=== PATIENT | female | born 1960 | race Caucasian/White ===

== ENCOUNTER 2024-04-04 07:56 | Outpatient (REF) | payer OTHER, SELFPAY ==
[2024-04-04 11:21] LABS: MANUAL DIFF FLAG NO
[2024-04-04 11:26] LABS: Basophils Absolute Auto 0.1 X10*3/uL (0.0-0.2); Basophils Percent Auto 0.5 % (0-2); Eosinophils Absolute Auto 0.1 X10*3/uL (0.0-0.4); Eosinophils Percent Auto 0.6 % (0-4); Hematocrit 43.6 % (37.0-47.0); Hemoglobin 14.3 g/dl (12.0-16.0); Imm Gran Abs Auto 0.05 X10*3/uL (0.00-0.03); Imm Gran Pct Auto 0.4 % (0.0-0.4); Lymphocytes Absolute Auto 2.2 X10*3/uL (1.2-4.9); Mean Corpuscular HGB Conc 32.8 g/dl (31.0-35.0); Mean Corpuscular Hemoglobin 27.2 pg (27.0-33.0); Mean Corpuscular Volume 82.9 fL (80.0-98.0); Monocytes Absolute Auto 0.7 X10*3/uL (0.1-1.2); Monocytes Percent Auto 5.4 % (2-11); Neutrophils Absolute Auto 9.2 x10*3/uL (2.0-8.3); Neutrophils Percent Auto 75.1 % (45-73); Platelet Count 394 X10*3/uL (160-400); Red Blood Count 5.26 X10*6/uL (4.20-5.50); Red Cell Distribution Width 15.1 % (11.0-16.0); White Blood Count 12.3 X10*3/uL (4.8-10.8)
[2024-04-04 11:35] LABS: Estimated Average Glucose 123 mg/dL; Hemoglobin A1C 151.7844 umol/L; Hemoglobin A1c % 5.9 % (<6.0)
[2024-04-04 12:14] LABS: Alanine Aminotransferase 32 U/L (0-31); Albumin Level 4.1 g/dL (3.5-5.0); Alkaline Phosphatase 113 U/L (39-117); Anion Gap 13 (12-20); Aspartate Amino Transferase 22 U/L (5-31); Bilirubin Total 0.6 mg/dL (0.0-1.0); Blood Urea Nitrogen 7 mg/dL (9-16); Calcium 9.3 mg/dL (8.4-10.2); Carbon Dioxide 27 mmol/L (22-29); Chloride 107 mmol/L (96-108); Cholesterol 189 mg/dL (<200); Estimated Glomerular Filt Rate > 60; Glucose Random 112 mg/dL (60-115); HDL Cholesterol 66 mg/dL (>40); LDL Cholesterol Calculated 106 mg/dL (<100); Potassium 3.5 mmol/L (3.3-5.1); Sodium 143 mmol/L (135-145); Total Protein 7.1 g/dL (6.5-8.0); Triglycerides 87 mg/dL (<150)
[2024-04-04 12:33] LABS: TSH reflex Free T4 2.41 uIU/mL (0.32-4.0)
== END 2024-04-04 07:57 | disposition home or self-care (01) ==
LOC: HO.WFDLDS 07:56
PROVIDERS: Visit Provider Internal Medicine
DX: E03.9 Hypothyroidism, unspecified (principal); R73.09 Other abnormal glucose; Z13.228 Encounter for screening for other metabolic disorders; Z13.0 Encounter for screening for diseases of the blood and blood-forming organs and certain disorders involving the immune mechanism
CPT/HCPCS: 36415; 80053; 80061; 83036; 84443; 85025

== ENCOUNTER 2024-05-20 11:01 | Outpatient (AMB) | payer OTHER, SELFPAY ==
--- NOTE | 2024-05-20 11:04 | MHC.PC.OV ---
Vital Signs 05/20/24 11:24 Height 5 ft 4.75 in Weight 187 lb BMI 31.4 BP 144/87 H Blood Pressure Location Lt brachial Position Sitting Respiration 13 Pulse 84 Pulse Source Pulse Oximeter Pulse Oximetry (%) 98 Oxygen Delivery Method Room Air Intake Visit Reasons: Reestablish from [facility] needs sooner appt Intake Note: Patient is here to establish care with [facility] and would like to discuss gastrointestinal concerns she has. Patient reports she can feel her SVT onset and knows how to help the heart slow down. Network Designer Required: No Accompanied by: Self / Same As Patient Allergies bacitracin [From Polysporin(bacitracin base)] Allergy (Severe, Verified 05/20/24 11:13) Rash Penicillins Allergy (Severe, Verified 05/20/24 11:13) Rash polymyxin B [From Polysporin(bacitracin base)] Allergy (Severe, Verified 05/20/24 11:13) Rash Medication List - Last Reconciled 05/25/24 by Nona Chaparro MD clonazepam 0.5 mg PO BID PRN fluconazole 150 mg PO DAILY levothyroxine 112 mcg PO DAILY lidocaine-prilocaine 2.5-2.5 % 1 appl topical ONCE scopolamine base 1 patch transdermal Q72H Tobacco use date assessed: 05/20/24 Dental Screening Dental Screen Date: 05/20/24 Did you have a dental visit in the last 12 months?: Yes Did you have a dental problem in the last 6 months where you did not have access to dental care?: No Was dental information given to patient?: Patient has dentist HPI HPI Comments History of Present Illness Details Patient is a 63-year-old female with a past medical history of hypothyroid, COBY, prediabetes, presenting for follow-up Hypothyroid: Stable on levothyroxine. COBY: Stable on CPAP therapy Cardiovascular: She has a history of SVT. Was seen in the hospital in 2021 for a prolonged episode. She was given adenosine with relief. She is followed up with cardiology since. Mammo 07/10/2023 Colonoscopy 2020 Pap 06/2021 ROS CONSTITUTIONAL: Denies weight loss, fever and chills. HEENT: Denies changes in vision and hearing. RESPIRATORY: Denies SOB and cough. CV: Denies palpitations and CP GI: Denies abdominal pain, nausea, vomiting and diarrhea. : Denies dysuria and urinary frequency. MSK: Denies new myalgia and joint pain. SKIN: Denies rash and pruritus. NEUROLOGICAL: Denies headache PSYCHIATRIC: Denies recent changes in mood. PHYSICAL EXAM: GENERAL: Alert and oriented x 3. NAD EYES: EOMI. Anicteric. HENT: Moist mucous membranes. No scleral icterus. No cervical lymphadenopathy. LUNGS: Clear to auscultation bilaterally. CARDIOVASCULAR: Regular rate and rhythm. No murmur. No JVD. ABDOMEN: Soft, non-tender +bs EXTREMITIES: No edema. Non-tender. SKIN: No rashes or lesions. Warm. NEUROLOGIC: No focal neurological deficits. CN II-XII grossly intact PSYCHIATRIC: Cooperative. Appropriate mood and affect [facility] Medical History History of mammogram Pap smear for cervical cancer screening SVT (supraventricular tachycardia) COBY on CPAP Hypothyroid Nevus Surgical History History of bladder suspension procedure Status post hysteroscopic ablation of endometrium History of colonoscopy Family History Mother Asthma Hypertension High cholesterol Diabetes Father Psychiatric disorder Paternal Grandmother Thyroid disorder Social History Household Members: Spouse and Children Housing: House Alcohol intake: current Alcohol intake frequency: a few times a month Patient Tobacco Use Status: Never used Tobacco e-Cigarette/Vaping Use: Never Used service: No Current occupational status: other Cognitive needs: No Hearing needs: No Vision needs: No Questionnaire PHQ-9 Over the last 2 weeks, how often have you been bothered by any of the following problems? 1. Little interest or pleasure in doing things: not at all 2. Feeling down, depressed, or hopeless: not at all 3. Trouble falling or staying asleep, or sleeping too much: more than half the days 4. Feeling tired or having little energy: not at all 5. Poor appetite or overeating: not at all 6. Feeling bad about yourself - or that you are a failure or have let yourself or your family down: not at all 7. Trouble concentrating on things, such as reading the newspaper or watching television: not at all 8. Moving or speaking so slowly that other people could have noticed. Or the opposite - being so fidgety or restless that you have been moving around a lot more than usual: not at all 9. Thoughts that you would be better off or of hurting yourself in some way: not at all Total score: 2 Depression Screening Interpretation: Negative (Neg) Depression Screening Done: Yes 70795 - PHQ-9 Billing: Yes Source: Developed by Drs. Lito Bonilla, Susan Montgomery, Oscar Christine and colleagues, with an educational rachel from [email or web address]. Thrive Questionnaire Date Thrive assessed: 05/20/24 I am a: Patient What is your living situation today?: I have a steady place to live Within the past 12 months, did the food you bought not last and you didn't have the money to get more?: Never true Within the past 12 months, did you worry whether your food would run out before you got money to buy more?: Never true Do you have trouble paying for medicines?: No Do you have trouble getting transportation to medical appointments?: No Do you have trouble paying your heating and electricity bill?: No Do you have trouble taking care of your child, family member or friend?: No Do you have trouble with day-to-day activities such as bathing, preparing meals, shopping, managing finances, etc.?: No Are you currently unemployed and looking for a job?: No Are you interested in more education?: No Please select the resources that you would like help with: None Currently or been in a relationship where the following occur: No concerns reported THRIVE Score: 0 AUDIT C Alcohol Use Questionnaire (AUDIT-C) 1. How often do you have a drink containing alcohol?: Monthly or less 2. How many drinks containing alcohol do you have on a typical day when you are drinking?: 1 or 2 3. How often do you have six or more drinks on one occasion?: Never Total Score: 1 GRAEME-7 AMB Questionnaire GRAEME-7 Date GRAEME - 7 assessed: 05/20/24 Feeling nervous, anxious, or on edge: 1 = Several days Not being able to stop or control worryin = Not at all Worrying too much about different things: 1 = Several days Trouble relaxin = Several days Being so restless that it is hard to sit still: 0 = Not at all Becoming easily annoyed or irritable: 0 = Not at all Feeling afraid as if something awful might happen: 0 = Not at all Total GRAEME-7 score (0-4 normal; 5-9 mild; 10-14 moderate; 15-21 severe): 3 Source: Developed by Drs. Lito Bonilla, Susan Montgomery, Oscar Christine and colleagues, with an educational rachel from [email or web address]. GRAEME-7 Assessment Billing GRAEME-7 Assessment Tool: GRAEME-7 Assessment 78841 Physical exam (Primary Care) Vital Signs: Last Vital Signs Pulse 84 05/20/24 11:24 Resp 13 05/20/24 11:24 BP 144/87 H 05/20/24 11:24 Pulse Ox 98 05/20/24 11:24 Oxygen Delivery Method Room Air 05/20/24 11:24 BMI result Body Mass Index 31.4 Tobacco/Smoking Status: Tobacco use Status Tobacco use date assessed 05/20/24 05/20/24 11:20 Patient Tobacco Use Status Never used Tobacco 05/20/24 11:35 e-Cigarette/Vaping Use Never Used 05/20/24 11:35 PHQ-9: PHQ-9 Score PHQ-9: Total score 2 05/25/24 08:58 Depression Screening Interpretation: Negative (Neg) Thrive Assessment: Date of Thrive Assessment Date Thrive assessed 05/20/24 05/20/24 11:32 Currently or been in a relationship where the following occur: No concerns reported Assessment and Plan Assessment & Plan (1) Hypothyroid: Code(s): E03.9 - Hypothyroidism, unspecified Qualifiers: 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 Qualified Code(s): E06.3 - Autoimmune thyroiditis Plan: Clinically and biochemically euthyroid (2) Impaired glucose metabolism: Code(s): R73.09 - Other abnormal glucose Plan: Monitor labs Orders: Orders Complete Blood Count Auto Diff 05/20/24 E03.9 - Hypothyroidism, unspecified, R73.09 - Other abnormal glucose IRON PROFILE 05/20/24 E03.9 - Hypothyroidism, unspecified, R73.09 - Other abnormal glucose Medications: New clonazepam 0.5 mg PO BID PRN 30 tabs 0RF anxiety Coding Level of Care Code Est Pt Level 4 (86398) Complex EM visit Add On G2211 Diagnoses 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
[2024-05-20 11:24] VITALS: BP 144/87; PULSE 84; RESP 13; O2SAT 98; BMI 31.4
== END 2024-05-20 11:58 | disposition home or self-care (01) ==
PROVIDERS: PCP Internal Medicine; Visit Provider Internal Medicine
DX: E06.3 Autoimmune thyroiditis (principal); R73.09 Other abnormal glucose
CPT/HCPCS: 99214

== ENCOUNTER 2024-05-20 12:02 | Outpatient (REF) | payer OTHER, SELFPAY ==
[2024-05-20 14:05] LABS: MANUAL DIFF FLAG NO
[2024-05-20 14:16] LABS: Basophils Absolute Auto 0.1 X10*3/uL (0.0-0.2); Basophils Percent Auto 0.4 % (0-2); Eosinophils Absolute Auto 0.1 X10*3/uL (0.0-0.4); Hemoglobin 14.7 g/dl (12.0-16.0); Imm Gran Abs Auto 0.05 X10*3/uL (0.00-0.03); Imm Gran Pct Auto 0.4 % (0.0-0.4); Lymphocytes Absolute Auto 2.2 X10*3/uL (1.2-4.9); Lymphocytes Percent Auto 19.2 % (20-40); Mean Corpuscular HGB Conc 32.7 g/dl (31.0-35.0); Mean Corpuscular Hemoglobin 28.1 pg (27.0-33.0); Mean Platelet Volume 9.5 fL (9.4-12.3); Monocytes Absolute Auto 0.8 X10*3/uL (0.1-1.2); Monocytes Percent Auto 7.4 % (2-11); Neutrophils Absolute Auto 8.1 x10*3/uL (2.0-8.3); Neutrophils Percent Auto 71.6 % (45-73); Platelet Count 464 X10*3/uL (160-400); Red Blood Count 5.23 X10*6/uL (4.20-5.50); White Blood Count 11.3 X10*3/uL (4.8-10.8)
[2024-05-20 14:23] LABS: Iron 68 mcg/dL (30-160); Percent Iron Saturation 23 % (15-50); Total Iron Binding Capacity 299 mcg/dL (228-428); Unsaturated Iron Binding 231 ug/dL
== END 2024-05-20 12:03 | disposition home or self-care (01) ==
LOC: HO.WFDLDS 12:02
PROVIDERS: Visit Provider Internal Medicine
DX: R73.09 Other abnormal glucose (principal); E03.9 Hypothyroidism, unspecified
CPT/HCPCS: 36415; 83540; 85025

== ENCOUNTER 2024-12-15 09:06 | Outpatient (REF) | payer OTHER, SELFPAY ==
--- OUTSIDE RECORDS SUMMARY | 2024-12-15 09:35 | XMS_ITS | Continuity of Care Document ---
Author Organization [facility] Address [address] [place] [id number] Care Team Providers Care Physicist Astrophysics Name Role Phone Not on Staff, PCP Primary Care Physician Unavail able Encounter [facility] [place] Date(s): 11/03/24 - 12/03/[address] [address] Attending Physician: Admtr Ar8 Admitting Physician: Admtr, Ar8 Referring Physician: Admtr, Ar8 Encounter Type: Triage Allergies, Adverse Reactions, Alerts Substance Criticality Severity Reaction Reaction Severity Status penicillins rash Active Polysporin Active Immunizations Given and Recorded Vaccine Date Status Refusal Reason tetanus/diphtheria/pertussis, acel(Tdap) 04/26/23 Given tetanus/diphtheria/pertussis, acel(Tdap) 09/10/13 Recorded SARS-CoV-2 (COVID-19) mRNA BNT-162b2 vac 11/16/21 Recorded SARS-CoV-2 (COVID-19) mRNA BNT-162b2 vac 03/03/21 Recorded SARS-CoV-2 (COVID-19) mRNA BNT-162b2 vac 02/10/21 Recorded influenza virus vaccine, inactivated 09/19/21 Raphael rded influenza virus vaccine, inactivated 07/23/20 Raphael rded influenza virus vaccine, inactivated 09/26/19 Raphael rded influenza virus vaccine, inactivated 06/23/19 Raphael rded influenza virus vaccine, inactivated 08/13/18 Raphael rded influenza virus vaccine, inactivated 08/17/17 Raphael rded influenza virus vaccine, inactivated 08/14/16 Raphael rded influenza virus vaccine, inactivated 08/26/14 Raphael rded zoster vaccine, inactivated 08/26/19 Recorded zoster vaccine, inactivated 08/14/19 Recorded zoster vaccine, inactivated 06/23/19 Recorded Medications CPAP Punchboard Assembler, 01/02/22 9:55:00 AM EST, Supply Start Date: 01/02/22 Status: Ordered Repeat number: 1 ferrous sulfate 325 mg oral enteric coated tablet 1, tablet, By Mouth, Every other day, TAKE WITH VITAMIN C. TO HELP-ABSORPTION, # 45 tablet, Refills1, Maintenance, 11/12/24 11:53:00 AM EST, Route to Pharmacy Electronically, [facility], 165, cm, 10/11/23 13:25:00 EST, Height, 87, kg, 10/03/23 13:58:00 EST, Dry Weight Start Date: 11/12/24 Status: Ordered Quantity: 45.0 Unit: tablet Repeat number: 1 levothyroxine 0.112 mg oral tablet 1 tablet, By Mouth, Daily, # 90 tablet, 0 Refills, Maintenance, 03/27/24 5:26:00 PM EDT, [facility], 165, cm, 10/11/23 13:25:00 EST, Height, 87, kg, 10/03/23 13:58:00 EST, Dry Weight Start Date: 03/27/24 Status: Ordered Quantity: 90.0 Unit: tablet Repeat number: 1 lidocaine-prilocaine 2.5%-2.5% topical cream 1 application, Topically, Once, # 30 Gm, 1 Refills, Soft Stop, 07/12/23 4:22:00 PM EDT, Cream, [facility], Partial fill upon patient request if the prescription is for a schedule II opioid drug., 1 application Topically Once, 165, cm, 05/30/23 7:54:00 EDT, Height, 88, kg, 04/19/22 2:20:00 EDT, Dry Weight Start Date: 07/12/23 Status: Ordered Quantity: 30.0 Unit: g Repeat number: 2 scopolamine 1 mg/72 hr transdermal film, extended release 1 patch, Topically, Every 72 hours, # 10 patch, 0 Refills, Maintenance, 08/06/23 12:24:00 PM EDT, [facility], Partial fill upon patient request if the prescription is for a schedule II opioid drug., 1 patch Topically Every 72 hours, 165, cm, 05/30/23 7:54:00 EDT, Height, 88, kg, 04/19/22 2:20:00 EDT, Dry Weight Start Date: 08/06/23 Status: Ordered Quantity: 10.0 Unit: patch Repeat number: 1 Problem List Condition Confirmation Course Effective Dates Status Health atus Informant Nevus Confirmed Active Hypothyroid Confirmed Active Obese class I Confirmed Active COBY on CPAP Confirmed Active SVT (supraventricular tachycardia) Confirmed Active Social History Social History Type Response Smoking Status Never (less than 100 in lifetime) entered on: 12/29/19 Sex Sex Representation Female (finding) Patient Care team information Care Team Personnel Name: Not on Staff, PCP Position: S Physician (General Medicine) Member Role: PCP Care Team Related Persons Name: IAN CURRY Name: DEREK CURRY Name: THERESA CURRY Insurance Providers Guarantor name: JOSE ALFREDO TSAMESERET Health Plan Information #: 1 Payer: [employer] Member Number: NA Policy Number: NA Group Number: [id number]
--- OUTSIDE RECORDS SUMMARY | 2024-12-15 09:35 | XMS_ITS | Clinical Summary ---
Author Organization [facility] Address [address] [place] [address] Care Team Providers Care Bleach Plant Operator Name Role Phone Nona Chaparro MD Primary Care Provider [phone] Surgical History Surgery Date Site/Laterality Comments OTHER SURGICAL HISTORY 1999 PROCEDURE: [place] HYSTEROSCOPY ENDOMETRIAL ABLATION BLADDER SUSPENSION 1997 PROCEDURE: HISTORICAL BLADDER SUSPENSION COLONOSCOPY 06/21/2011 PROCEDURE: HISTORICAL COLONOSCOPY OTHER SURGICAL HISTORY PROCEDURE: UPPER GASTROINTESTINAL ENDOSCOPY IN OTHER SURGICAL HISTORY PROCEDURE: HISTORICAL MELANOMA Medical History Medical History Date Comments Goiter DX:Goiter Anxiety DX:Anxiety Hypothyroidism 09/10/2013 DX:Hypothyroidis m; COMMENT: 1982 Overweight(278.02) 01/26/2015 DX:Overweight (278.02) Sleep apnea 01/26/2015 DX:Sleep apnea Melanoma (CMS/HCC) DX:Melanoma ( HCC); COMMENT: x 2 History of malignant melanoma DX :History of malignant melanoma; COMMENT: Malignant melanoma abdomen - 1993 & left thigh - 1996 History of other specified c onditions presenting hazards to health 1993, 1997 DX:History of other speci fied conditions presenting hazards to health; COMMENT: melanoma-skin of abd, leg Family History Medical History Relation Name Comments Other: blood clot Mother after surg darby Relation Name Status Comments Brother Alive healthy Father (Age 78) dementia Maternal Grandfather DM Maternal Grandmother Bilatea l mastectomy -? breast ca Mother Alive anxiety/depress ion, DM, htn Paternal Grandfather unknown Paternal Grandmother unknown Sister Alive healthy Son 1 Alive healthy Son 2 Alive healthy Social History Tobacco Use Types Packs/Day Years Used Date Smoking Tobacco: Never Smokeless Tobacco: Never Alcohol Use Standard Drinks/Week Comments Yes 0 (1 standard drink = 0.6 oz pur e alcohol) Comments Unknown Sex and Gender Information Value Date Recorded Sex Assigned at Not on file Legal Sex Female 8:39 AM EST Gender Identity Not on file Sexual Orientation Not on file Obstetrics History Last Filed Vital Signs Vital Sign Reading Time Taken Comments Blood Pressure 136/80 12/06/2022 11:01 AM EST Sitting L Arm Pulse 82 12/06/2022 11:01 AM EST Temperature - - Respiratory Rate - - Oxygen Saturation - - Inhaled Oxygen Concentration - - Weight 88.1 kg (194 lb 3.2 oz) 12/06/2022 11:01 AM EST Height 165.1 cm (5' 5 ) 12/06/2022 11:0 1 AM EST Body Mass Index 32.32 12/06/2022 11:01 AM EST Plan of Treatment Upcoming Encounters Date Type Department Care Team (Late st Contact Info) Description 07/29/2025 8:30 AM EDT Appointment Radiology Department [address] [address] Health Maintenance Due Date Last Done Comments Cervical Cancer Screening: Pap Smear 1982 Pneumococcal Vaccine: 50+ Years (1 of 1 - PCV) 2011 DTaP,Tdap,and Td Vaccines (2 - Td or Tdap) 10/08/2013 09/10/2013 Cholesterol Screening (Lipid Panel) 10/14/2022 Colorectal Cancer Screening: Colonoscopy 10/14/2022 Depression Screening 10/14/2022 HIV Screening 10/14/2022 Hepatitis C Screening 10/14/2022 Social Influencers of Health Screening 10/14/2022 COVID-19 Vaccine ( season) 2024 Influenza Vaccine (#1) 2024 0, 06/23/2019, 08/26/2014 Breast Cancer Screening 07/16/2026 07/16/20 24, 07/16/2024, 07/10/2023, Additional history exists RSV Immunization Patients 60+ Years Old (1 - 1-dose 75+ series) 2036 Zoster Vaccines Completed 08/26/2019, 06/23/2019 HIB Vaccines Aged Out No longer eligi ble based on patient's age to complete this topic HPV Vaccines Aged Out No longer eligi ble based on patient's age to complete this topic Hepatitis A Vaccines Aged Out No long er eligible based on patient's age to complete this topic Hepatitis B Vaccines Aged Out No long er eligible based on patient's age to complete this topic IPV Vaccines Aged Out No longer eligi ble based on patient's age to complete this topic MMR Vaccines Aged Out No longer eligi ble based on patient's age to complete this topic Meningococcal ACWY Vaccine Aged Out N o longer eligible based on patient's age to complete this topic Meningococcal B Vacine Aged Out No lo nger eligible based on patient's age to complete this topic Pneumococcal Vaccine: Pediatrics (0 to 5 Years) and At-Risk Patients (6 to 64 Years) Aged Out No longer eligible based on patient's age to complete this topic RSV Immunization Patients Under 20 months Aged Out No longer eligible based on patient's age to complete this topic Varicella Vaccines Aged Out No longer eligible based on patient's age to complete this topic Procedures Procedure Name Priority Date/Time Associated Diagnosis Comments SCREENING MAMMOGRAPHY BI 2-VIEW BREAST INC CAD Routine 07/16/2024 8:38 AM EDT Encounter for screening mammogram for malignant neoplasm of breast from Last 3 Months or Most Recently Relevant to Health Maintenance Results * SCREENING MAMMOGRAPHY BI 2-VIEW BREAST INC CAD (07/16/2024 8:38 AM EDT) Anatomical Region Laterality Modality Radiographic Dana ging 07/10/2023 8:37 AM EDT Narrative 07/16/2024 6:33 PM EDT This is a summary report. The complete report is available in the patient's medical record. If you cannot access the medical record, please contact the sending organization for a detailed fax or copy. Exam: Screening mammogram Findings: Digital bilateral full-field screening mammography is performed with tomosynthesis and interpreted with the aid of computer-aided detection. ??Comparison is made with 07/10/2023 and as far back as 06/23/2020. Breast parenchyma is heterogeneously dense, which may obscure small masses. ??No new suspicious mass, architectural distortion, or suspicious calcifications. Impression: No mammographic evidence of malignancy. BI-RADS 1 - negative [facility] [address] [id number] Procedure Note Glenys Andujar MD - 09/29/2024 This is a summary report. The complete report is available in thepatient's medical record. If you cannot access the medical record, pleasecontact the sending organization for a detailed fax or copy. Exam: Screening mammogram Findings: Digital bilateral full-field screening mammography is performedwith tomosynthesis and interpreted with the aid of computer-aideddetection. Comparison is made with 07/10/2023 and as far back as06/23/2020. Breast parenchyma is heterogeneously dense, which may obscure smallmasses. No new suspicious mass, architectural distortion, or suspiciouscalcifications. Impression: No mammographic evidence of malignancy. BI-RADS 1 - negative [facility] [address] [address] Nona Chaparro MD IMG XR PROCEDURES Final Result from Last 3 Months or Most Recently Relevant to Health Maintenance Care Teams Bleach Plant Operator Relationship Specialty Start Date End Date Nona Chaparro MD PCP - General Internal Medicine 07/01/21
[2024-12-15 11:08] LABS: MANUAL DIFF FLAG NO
[2024-12-15 11:12] LABS: Basophils Percent Auto 0.5 % (0-2); Eosinophils Absolute Auto 0.2 X10*3/uL (0.0-0.4); Eosinophils Percent Auto 1.9 % (0-4); Hematocrit 42.9 % (37.0-47.0); Hemoglobin 14.3 g/dl (12.0-16.0); Imm Gran Abs Auto 0.03 X10*3/uL (0.00-0.03); Imm Gran Pct Auto 0.4 % (0.0-0.4); Lymphocytes Absolute Auto 1.9 X10*3/uL (1.2-4.9); Lymphocytes Percent Auto 22.2 % (20-40); Mean Corpuscular HGB Conc 33.3 g/dl (31.0-35.0); Mean Corpuscular Hemoglobin 28.7 pg (27.0-33.0); Mean Corpuscular Volume 86.1 fL (80.0-98.0); Mean Platelet Volume 11.3 fL (9.4-12.3); Monocytes Absolute Auto 0.5 X10*3/uL (0.1-1.2); Monocytes Percent Auto 5.9 % (2-11); Neutrophils Absolute Auto 5.9 x10*3/uL (2.0-8.3); Neutrophils Percent Auto 69.1 % (45-73); Platelet Count 294 X10*3/uL (160-400); Red Blood Count 4.98 X10*6/uL (4.20-5.50); Red Cell Distribution Width 13.2 % (11.0-16.0); White Blood Count 8.5 X10*3/uL (4.8-10.8)
[2024-12-15 11:26] LABS: Estimated Average Glucose 123 mg/dL; Hemoglobin A1C 151.8669 umol/L; Hemoglobin A1c % 5.9 % (<6.0); Total Hemoglobin (HGBA1C) 3743.9716 umol/L
[2024-12-15 11:36] LABS: Alkaline Phosphatase 92 U/L (39-117); Anion Gap 11 (12-20); Aspartate Amino Transferase 27 U/L (5-31); Bilirubin Total 0.4 mg/dL (0.0-1.0); Blood Urea Nitrogen 11 mg/dL (9-16); Calcium 8.5 mg/dL (8.4-10.2); Carbon Dioxide 23 mmol/L (22-29); Chloride 112 mmol/L (96-108); Cholesterol 188 mg/dL (<200); Estimated Glomerular Filt Rate > 60; Glucose Random 101 mg/dL (60-115); HDL Cholesterol 65 mg/dL (>40); LDL Cholesterol Calculated 114 mg/dL (<100); Sodium 142 mmol/L (135-145); Total Protein 7.3 g/dL (6.5-8.0); Triglycerides 49 mg/dL (<150)
[2024-12-15 11:48] LABS: Alanine Aminotransferase 30 U/L (0-31)
[2024-12-15 11:51] LABS: TSH reflex Free T4 1.99 uIU/mL (0.32-4.0)
[2024-12-15 12:00] LABS: Platelet Count (Citrate) 290 X10*3/uL (150-310)
== END 2024-12-15 09:07 | disposition home or self-care (01) ==
LOC: HO.WFDLDS 09:06
PROVIDERS: Visit Provider Internal Medicine
DX: Z13.0 Encounter for screening for diseases of the blood and blood-forming organs and certain disorders involving the immune mechanism (principal); Z13.228 Encounter for screening for other metabolic disorders; R73.09 Other abnormal glucose; E06.3 Autoimmune thyroiditis
CPT/HCPCS: 80053; 80061; 83036; 84443; 85025

== ENCOUNTER 2025-01-14 12:45 | Outpatient (REF) | payer OTHER, SELFPAY ==
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
--- OUTSIDE RECORDS SUMMARY | 2025-01-14 14:48 | XMS_ITS | Clinical Summary ---
Author Organization [facility] Address [address] [place] [address] Care Team Providers Care Field Research Assistant Name Role Phone Nona Chaparro MD Primary Care Provider [phone] Surgical History Surgery Date Site/Laterality Comments OTHER SURGICAL HISTORY 1999 PROCEDURE: [place] HYSTEROSCOPY ENDOMETRIAL ABLATION BLADDER SUSPENSION 1997 PROCEDURE: [...] specified c onditions presenting hazards to health 1997 DX:History of other speci fied conditions [...] 07/29/2025 8:30 AM EDT Appointment Radiology Department [address] [address] Health Maintenance Due Date Last Done Comments Cervical Cancer Screening: Pap Smear 1982 Pneumococcal Vaccine: 50+ Years (1 of 1 - PCV) 2011 Cholesterol Screening (Lipid Panel) 10/14/2022 Colorectal Cancer Screening: Colonoscopy 10/14/2022 Depression Screening 10/14/2022 HIV Screening 10/14/2022 Hepatitis C Screening 10/14/2022 Social Influencers of Health Screening 10/14/2022 DTaP,Tdap,and Td Vaccines (2 - Td or Tdap) 09/10/2023 09/10/2013 COVID-19 Vaccine ( season) 2024 Influenza Vaccine [...] evidence of malignancy. BI-RADS 1 - negative [facility] [address] [id number] Procedure Note Glenys Andujar MD - 09/29/2024 [...] evidence of malignancy. BI-RADS 1 - negative [facility] [address] [address] Nona Chaparro MD IMG XR PROCEDURES Final Result from Last 3 Months or Most Recently Relevant to Health Maintenance Care Teams Field Research Assistant Relationship Specialty Start Date End Date Nona Chaparro MD PCP - General Internal Medicine 07/01/21
== END 2025-01-14 12:46 | disposition home or self-care (01) ==
LOC: HO.NEURO 12:45
PROVIDERS: PCP Internal Medicine
DX: R20.0 Anesthesia of skin (principal); R20.2 Paresthesia of skin
CPT/HCPCS: 95886; 95909

== ENCOUNTER → 2025-01-14 12:49 | Outpatient (BNV) | payer OTHER, SELFPAY | PROVIDERS: PCP Internal Medicine; Visit Provider Physical Medicine & Rehabilitation | DX: R20.0 Anesthesia of skin (principal); R20.2 Paresthesia of skin; M25.532 Pain in left wrist | CPT/HCPCS: 95886; 95909 ==

== ENCOUNTER 2025-03-03 08:43 | Outpatient (AMB) | payer OTHER, SELFPAY ==
[2025-03-03 08:45] VITALS: BMI 32.6
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
--- OUTSIDE RECORDS SUMMARY | 2025-03-03 09:09 | XMS_ITS | Clinical Summary ---
Author Organization [facility] Address [address] [place] [address] Care Team Providers Care Graduate Teacher Education Name Role Phone Nona Chaparro MD Primary Care Provider [phone] Surgical History Surgery Date Site/Laterality Comments OTHER SURGICAL HISTORY 1999 PROCEDURE: CT HYSTEROSCOPY ENDOMETRIAL ABLATION BLADDER SUSPENSION 1997 PROCEDURE: HISTORICAL BLADDER SUSPENSION COLONOSCOPY 06/21/2011 PROCEDURE: HISTORICAL COLONOSCOPY OTHER SURGICAL HISTORY PROCEDURE: UPPER GASTROINTESTINAL ENDOSCOPY IN OTHER SURGICAL HISTORY PROCEDURE: HISTORICAL MELANOMA Medical History Medical History Date Comments Goiter DX:Goiter Anxiety DX:Anxiety Hypothyroidism 09/10/2013 DX:Hypothyroidis m; COMMENT: 1982 Overweight(278.02) 01/26/2015 DX:Overweight (278.02) Sleep apnea 01/26/2015 DX:Sleep apnea Melanoma (CMS/HCC V24, CMS/HCC V28) DX:Melanoma (HCC); COMMENT: x 2 History of malignant melanoma [...] 07/29/2025 8:30 AM EDT Appointment Radiology Department [address] [address] Health Maintenance Due Date Last Done Comments Cervical Cancer Screening: Pap Smear 1982 Pneumococcal Vaccine: 50+ Years (1 of 1 - PCV) 2011 Cholesterol Screening (Lipid Panel) 10/14/2022 Colorectal Cancer Screening: Colonoscopy 10/14/2022 Depression Screening 10/14/2022 HIV Screening 10/14/2022 Hepatitis C Screening 10/14/2022 Social Influencers of Health Screening 10/14/2022 DTaP,Tdap,and Td Vaccines (2 - Td or Tdap) 09/10/2023 09/10/2013 COVID-19 Vaccine ( - season) 2024 Influenza Vaccine (Season Ended) 2025 07/23/2020, 06/23/2019, 08/26/2014 Breast Cancer Screening 07/16/2026 07/16/20 24, 07/16/2024, 07/10/2023, Additional history exists RSV Immunization Adult Patients (1 - 1-dose 75+ series) 2036 Zoster [...] age to complete this topic Meningococcal B Vaccine Aged Out No l onger eligible based on patient's age to complete [...] evidence of malignancy. BI-RADS 1 - negative [address] [address] Procedure Note Glenys Andujar MD - 09/29/2024 [...] evidence of malignancy. BI-RADS 1 - negative [facility] [address] [place] [id number] Nona Chaparro MD IMG XR PROCEDURES Final Result from Last 3 Months or Most Recently Relevant to Health Maintenance Care Teams Graduate Teacher Education Relationship Specialty Start Date End Date Nona Chaparro MD PCP - General Internal Medicine 07/01/21
== END 2025-03-03 09:21 | disposition home or self-care (01) ==
PROVIDERS: PCP Internal Medicine
DX: M25.532 Pain in left wrist (principal)
CPT/HCPCS: 99203

== ENCOUNTER 2025-03-03 08:43 | Outpatient (REF) | payer OTHER, SELFPAY ==
--- NOTE | ~2025-03-03 | XR_ITS ---
EXAMINATION: XR HAND 3 OR MORE VIEWS LEFT HISTORY: M79.642 - Pain in left hand COMPARISON: There are no prior studies available for comparison. FINDINGS: Three views of the left hand are submitted. Osseous mineralization is normal. There is no fracture or dislocation. There is mild narrowing of the DIP joints and the interphalangeal joint of the thumb. The soft tissues are unremarkable. XR/XR hand LT min 3V IMPRESSION: Mild osteoarthritis as described. Electronically signed by: Lito Dye MD 03/04/2025 05:33 PM EDT
--- OUTSIDE RECORDS SUMMARY | 2025-03-03 09:40 | XMS_ITS | Clinical Summary ---
Author Organization [facility] Address [address] [place] [address] Care Team Providers Care Project Program Manager Name Role Phone Nona Chaparro MD Primary Care Provider [phone] Surgical History Surgery Date Site/Laterality Comments OTHER SURGICAL HISTORY 1999 PROCEDURE: [place] HYSTEROSCOPY ENDOMETRIAL ABLATION BLADDER SUSPENSION 1997 PROCEDURE: [...] 07/29/2025 8:30 AM EDT Appointment Radiology Department [address] [address] Health Maintenance Due Date Last Done Comments [...] evidence of malignancy. BI-RADS 1 - negative [address] [address] Procedure Note Glenys Andujar MD - 09/29/2024 [...] evidence of malignancy. BI-RADS 1 - negative [facility] [address] [place] [phone] Nona Chaparro MD IMG XR PROCEDURES Final Result from Last 3 Months or Most Recently Relevant to Health Maintenance Care Teams Project Program Manager Relationship Specialty Start Date End Date Nona Chaparro MD PCP - General Internal Medicine 07/01/21
== END 2025-03-03 08:44 | disposition home or self-care (01) ==
LOC: HO.HOSX 08:43
PROVIDERS: PCP Internal Medicine
DX: M79.642 Pain in left hand (principal)
CPT/HCPCS: 73130

== ENCOUNTER → 2025-03-03 09:06 | Outpatient (BNV) | payer OTHER, SELFPAY | PROVIDERS: PCP Internal Medicine; Visit Provider Radiology Diagnostic Radiology | DX: M79.642 Pain in left hand (principal) | CPT/HCPCS: 73130 ==

== ENCOUNTER 2025-05-27 08:13 | Outpatient (REF) | payer OTHER, SELFPAY ==
--- OUTSIDE RECORDS SUMMARY | 2025-05-27 08:22 | XMS_ITS | Clinical Summary ---
Author Organization [facility] Address [address] [place] [address] Care Team Providers Care Mortgage Loan Reviewer Name Role Phone Nona Chaparro MD Primary Care Provider [phone] Surgical History Surgery Date Site/Laterality Comments OTHER SURGICAL HISTORY 1999 PROCEDURE: [place] HYSTEROSCOPY ENDOMETRIAL ABLATION BLADDER SUSPENSION 1997 PROCEDURE: [...] 07/29/2025 8:30 AM EDT Appointment Radiology Department [address] [address] Health Maintenance Due Date Last Done Comments Cervical Cancer Screening: Pap Smear 1982 Pneumococcal Vaccine: 50+ Years (1 of 1 - PCV) 2011 Cholesterol Screening (Lipid Panel) 10/14/2022 Colorectal Cancer Screening: Colonoscopy 10/14/2022 HIV Screening 10/14/2022 Hepatitis C Screening 10/14/2022 Social Influencers of Health Screening 10/14/2022 DTaP,Tdap,and Td Vaccines (2 - Td or Tdap) 09/10/2023 09/10/2013 COVID-19 Vaccine ( season) 2024 Depression Screening 11/05/2024 Influenza Vaccine (#1) 2025 0, 06/23/2019, 08/26/2014 Breast Cancer Screening 07/16/2026 [...] interpreted with the aid of computer-aided detection. Comparison is made with 07/10/2023 and as far back as 06/23/2020. Breast parenchyma is heterogeneously dense, which may obscure small masses. No new suspicious mass, architectural distortion, or suspicious calcifications. Impression: No mammographic evidence of malignancy. BI-RADS 1 - negative [facility] [address] [address] Procedure Note Glenys Andujar MD - 09/29/2024 [...] evidence of malignancy. BI-RADS 1 - negative [facility] [address] [place] [address] Nona Chaparro MD IMG XR PROCEDURES Final Result from Last 3 Months or Most Recently Relevant to Health Maintenance Care Teams Mortgage Loan Reviewer Relationship Specialty Start Date End Date Nona Chaparro MD PCP - General Internal Medicine 07/01/21
[2025-05-27 11:21] LABS: MANUAL DIFF FLAG NO
[2025-05-27 11:23] LABS: Hematocrit 44.3 % (37.0-47.0); Hemoglobin 14.6 g/dl (12.0-16.0); Imm Gran Abs Auto 0.03 X10*3/uL (0.00-0.03); Imm Gran Pct Auto 0.4 % (0.0-0.4); Lymphocytes Absolute Auto 1.8 X10*3/uL (1.2-4.9); Mean Corpuscular HGB Conc 33.0 g/dl (31.0-35.0); Mean Corpuscular Hemoglobin 28.7 pg (27.0-33.0); Mean Corpuscular Volume 87.0 fL (80.0-98.0); NRBC Abs Auto 0.000 X10*3/uL (0.0-0.012); NRBC Pct Auto 0.0 /100WBC (0.0-0.2); Platelet Count 334 X10*3/uL (160-400); Red Blood Count 5.09 X10*6/uL (4.20-5.50); White Blood Count 8.1 X10*3/uL (4.8-10.8)
[2025-05-27 11:34] LABS: Hemoglobin A1C 158.0349 umol/L; Total Hemoglobin (HGBA1C) 3760.6820 umol/L
[2025-05-27 12:00] LABS: Alanine Aminotransferase 35 U/L (0-31); Albumin Level 4.2 g/dL (3.5-5.0); Alkaline Phosphatase 98 U/L (39-117); Anion Gap 11 (12-20); Aspartate Amino Transferase 25 U/L (5-31); Blood Urea Nitrogen 11 mg/dL (9-16); Calcium 8.7 mg/dL (8.4-10.2); Carbon Dioxide 26 mmol/L (22-29); Chloride 108 mmol/L (96-108); Cholesterol 200 mg/dL (<200); Estimated Glomerular Filt Rate > 60; HDL Cholesterol 58 mg/dL (>40); Potassium 3.8 mmol/L (3.3-5.1); Sodium 141 mmol/L (135-145); Total Protein 6.9 g/dL (6.5-8.0); Triglycerides 69 mg/dL (<150)
== END 2025-05-27 08:14 | disposition home or self-care (01) ==
LOC: HO.WFDLDS 08:13
PROVIDERS: Visit Provider Internal Medicine
DX: Z13.0 Encounter for screening for diseases of the blood and blood-forming organs and certain disorders involving the immune mechanism (principal); Z13.228 Encounter for screening for other metabolic disorders; R73.09 Other abnormal glucose; E06.3 Autoimmune thyroiditis
CPT/HCPCS: 36415; 80053; 80061; 83036; 84443; 85025

== ENCOUNTER 2025-06-01 11:04 | Outpatient (AMB) | payer OTHER, SELFPAY ==
--- NOTE | 2025-06-01 11:10 | A.OFFPC_ITS ---
Vital Signs 06/01/25 11:14 Height 5 ft 4 in Weight 201 lb BMI 34.5 BP 110/72 Blood Pressure Location Rt brachial Position Sitting Respiration 14 Pulse 74 Pulse Source Pulse Oximeter Temp 98 F Temp Source Oral Pulse Oximetry (%) 96 Oxygen Delivery Method Room Air Intake Visit Reasons: f/up Intake Note: Follow up Medical Office Coordinator Required: No Allergies bacitracin (From Polysporin(bacitracin base)) Allergy (Severe, Verified 06/01/25 11:14) Rash Penicillins Allergy (Severe, Verified 06/01/25 11:14) Rash polymyxin B (From Polysporin(bacitracin base)) Allergy (Severe, Verified 06/01/25 11:14) Rash Tobacco use date assessed: 06/01/25 Dental Screening Dental Screen Date: 06/01/25 Did you have a dental visit in the last 12 months?: Yes Did you have a dental problem in the last 6 months where you did not have access to dental care?: No Was dental information given to patient?: Patient has dentist HPI HPI Comments History of Present Illness Details Patient is a 64-year-old female with a past medical history of hypothyroid, COBY, prediabetes, SVT presenting for follow-up Hypothyroid: Stable on levothyroxine. Last TSH 2.0. COBY: Stable on CPAP therapy Cardiovascular: She has a history of SVT. Was seen in the hospital in 2021 for a prolonged episode. She was given adenosine with relief. She followed up with cardiology since. She believes in was driven by allergy medicine MSK: Saw ortho for CMC arthritis. Started on turmeric with much improvement. Remote injury with knife puncture while cooking. Has had numbness in the thumb s charlie. EMG normal. xray performed. Mammo UTD Colonoscopy 2020-[address] Lima. Reports increased bowel issues. Increased frequency and changing consistency. No fatigue, weight loss. Pap 06/2021 ROS see HPI PHYSICAL EXAM: GENERAL: Alert and oriented x 3. NAD EYES: EOMI. Anicteric. HENT: Moist mucous membranes. No scleral icterus. No cervical lymphadenopathy. LUNGS: Clear to auscultation bilaterally. CARDIOVASCULAR: Regular rate and rhythm. No murmur. No JVD. ABDOMEN: Soft, non-tender +bs EXTREMITIES: No edema. Non-tender. SKIN: No rashes or lesions. Warm. NEUROLOGIC: No focal neurological deficits. CN II-XII grossly intact PSYCHIATRIC: Cooperative. Appropriate mood and affect [facility] Medical History History of mammogram Pap smear for cervical cancer screening SVT (supraventricular tachycardia) COBY on CPAP Hypothyroid Nevus Surgical History History of bladder suspension procedure Status post hysteroscopic ablation of endometrium History of colonoscopy Family History Mother Asthma Hypertension High cholesterol Diabetes Father Psychiatric disorder Paternal Grandmother Thyroid disorder Social History Household Members: Spouse and Children Housing: House Alcohol intake: current Alcohol intake frequency: a few times a month Patient Tobacco Use Status: Never used Tobacco e-Cigarette/Vaping Use: Never Used service: No 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 occupational status: 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 Cognitive needs: No Hearing needs: No Vision needs: No Questionnaire Thrive Questionnaire Date Thrive assessed: 11/21/24 I am a: Patient What is your living situation today?: I have a steady place to live Within the past 12 months, did the food you bought not last and you didn't have the money to get more?: Never true Within the past 12 months, did you worry whether your food would run out before you got money to buy more?: Never true Do you have trouble paying for medicines?: No Do you have trouble getting transportation to medical appointments?: No Do you have trouble paying your heating and electricity bill?: No Do you have trouble taking care of your child, family member or friend?: No Do you have trouble with day-to-day activities such as bathing, preparing meals, shopping, managing finances, etc.?: No Are you currently unemployed and looking for a job?: No Are you interested in more education?: No Please select the resources that you would like help with: None Currently or been in a relationship where the following occur: No concerns reported THRIVE Score: 0 AUDIT C Alcohol Use Questionnaire (AUDIT-C) 1. How often do you have a drink containing alcohol?: 2-3 times a week 2. How many drinks containing alcohol do you have on a typical day when you are drinking?: 3 or 4 (Light beer) 3. How often do you have six or more drinks on one occasion?: Never Total Score: 4 GRAEME-7 AMB Questionnaire GRAEME-7 Date GRAEME - 7 assessed: 05/20/24 Source: Developed by Drs. Lito Bonilla, Susan Montgomery, Oscar Christine and colleagues, with an educational rachel from [employer]. Physical exam (Primary Care) Vital Signs: Last Vital Signs Temp 98 F 06/01/25 11:14 Pulse 74 06/01/25 11:14 Resp 14 06/01/25 11:14 BP 110/72 06/01/25 11:14 Pulse Ox 96 06/01/25 11:14 Oxygen Delivery Method Room Air 06/01/25 11:14 BMI result Body Mass Index 34.5 Tobacco/Smoking Status: Tobacco use Status Tobacco use date assessed 06/01/25 06/01/25 11:18 Patient Tobacco Use Status Never used Tobacco 06/01/25 11:12 e-Cigarette/Vaping Use Never Used 06/01/25 11:12 Thrive Assessment: Date of Thrive Assessment Date Thrive assessed 11/21/24 06/01/25 11:12 Currently or been in a relationship where the following occur: No concerns reported Coding Level of Care Code Est Pt Level 4 (48074) Diagnoses Impaired glucose metabolism R73.09 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 Change in bowel function R19.8 Screening for STD (sexually transmitted disease) Z11.3 Assessment & Plan Assessment & Plan (1) Impaired glucose metabolism: Code(s): R73.09 - Other abnormal glucose Category: Medical (2) Hypothyroid: Code(s): E03.9 - Hypothyroidism, unspecified Category: Medical Qualifiers: 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 Due for colonoscoy next year. Stool studies sent New partner-sti testing ordered Hypothyroid-clinically and biochemically euthyroid Orders: Orders Calprotectin, Fecal Today R19.8 - Other specified symptoms and signs involving the digestive system and abdomen, Z11.3 - Encounter for screening for infections with a predominantly sexual mode of transmission Pancreatic Elastase-1 Today R19.8 - Other specified symptoms and signs involving the digestive system and abdomen, Z11.3 - Encounter for screening for infections with a predominantly sexual mode of transmission HIV Ab/Ag Today R19.8 - Other specified symptoms and signs involving the digestive system and abdomen, Z11.3 - Encounter for screening for infections with a predominantly sexual mode of transmission H pylori Ag Stool Today R19.8 - Other specified symptoms and signs involving the digestive system and abdomen, Z11.3 - Encounter for screening for infections with a predominantly sexual mode of transmission Syphilis Screen Today R19.8 - Other specified symptoms and signs involving the digestive system and abdomen, Z11.3 - Encounter for screening for infections with a predominantly sexual mode of transmission Referrals Gastroenterology Referral R19.4 - Change in bowel habit Medications: Refilled levothyroxine 112 mcg PO DAILY 90 tabs 3RF
[2025-06-01 11:14] VITALS: BP 110/72; PULSE 74; RESP 14; TEMP 36.6; O2SAT 96; BMI 34.5
--- OUTSIDE RECORDS SUMMARY | 2025-06-01 12:24 | XMS_ITS | Clinical Summary ---
Author Organization [facility] Address [address] [place] [address] Care Team Providers Care Tavern Keeper Name Role Phone Nona Chaparro MD Primary Care Provider [phone] Surgical History Surgery Date Site/Laterality Comments OTHER SURGICAL HISTORY 1999 PROCEDURE: [place] HYSTEROSCOPY ENDOMETRIAL ABLATION BLADDER SUSPENSION 1997 PROCEDURE: [...] 07/29/2025 8:30 AM EDT Appointment Radiology Department [address] [address] Health Maintenance Due Date Last Done Comments [...] evidence of malignancy. BI-RADS 1 - negative [facility] [address] [address] Procedure Note Glenys Andujar MD - 09/29/2024 [...] evidence of malignancy. BI-RADS 1 - negative [facility] [address] [place] [address] Nona Chaparro MD IMG XR PROCEDURES Final Result from Last 3 Months or Most Recently Relevant to Health Maintenance Care Teams Tavern Keeper Relationship Specialty Start Date End Date Nona Chaparro MD PCP - General Internal Medicine 07/01/21
== END 2025-06-01 11:49 | disposition home or self-care (01) ==
LOC: HO.HMCFM 11:05
PROVIDERS: PCP Internal Medicine; Visit Provider Internal Medicine
DX: R73.09 Other abnormal glucose (principal); E06.3 Autoimmune thyroiditis; R19.8 Other specified symptoms and signs involving the digestive system and abdomen; Z11.3 Encounter for screening for infections with a predominantly sexual mode of transmission

== ENCOUNTER 2025-06-01 15:38 | Outpatient (REF) | payer OTHER, SELFPAY ==
[2025-06-01 17:36] LABS: MANUAL DIFF FLAG NO
[2025-06-01 17:38] LABS: Hematocrit 44.6 % (37.0-47.0); Hemoglobin 14.9 g/dl (12.0-16.0); Imm Gran Abs Auto 0.05 X10*3/uL (0.00-0.03); Imm Gran Pct Auto 0.4 % (0.0-0.4); Lymphocytes Absolute Auto 2.4 X10*3/uL (1.2-4.9); Mean Corpuscular HGB Conc 33.4 g/dl (31.0-35.0); Mean Corpuscular Hemoglobin 28.6 pg (27.0-33.0); Mean Corpuscular Volume 85.6 fL (80.0-98.0); NRBC Abs Auto 0.000 X10*3/uL (0.0-0.012); NRBC Pct Auto 0.0 /100WBC (0.0-0.2); Platelet Count 271 X10*3/uL (160-400); Red Blood Count 5.21 X10*6/uL (4.20-5.50); White Blood Count 11.6 X10*3/uL (4.8-10.8)
[2025-06-02 03:41] LABS: Syphilis Screen Nonreactive (Nonreactive)
[2025-06-02 03:58] LABS: HIV Num 1 0.06 S/CO (0.00-0.99)
== END 2025-06-01 15:39 | disposition home or self-care (01) ==
LOC: HO.WFDLDS 15:38
PROVIDERS: Visit Provider Internal Medicine
DX: Z13.0 Encounter for screening for diseases of the blood and blood-forming organs and certain disorders involving the immune mechanism (principal); Z11.3 Encounter for screening for infections with a predominantly sexual mode of transmission; Z13.228 Encounter for screening for other metabolic disorders; E06.3 Autoimmune thyroiditis; R19.8 Other specified symptoms and signs involving the digestive system and abdomen; R73.09 Other abnormal glucose
CPT/HCPCS: 36415; 85025; 86780; 87389

== ENCOUNTER 2025-06-03 11:03 | Outpatient (REF) | payer OTHER, SELFPAY ==
--- OUTSIDE RECORDS SUMMARY | 2025-06-03 12:08 | XMS_ITS | Clinical Summary ---
Author Organization [facility] Address [address] [place] [address] Care Team Providers Care Make Ready Mechanic Name Role Phone Nona Chaparro MD Primary Care Provider [phone] Surgical History Surgery Date Site/Laterality Comments OTHER [...] 07/29/2025 8:30 AM EDT Appointment Radiology Department [address] [address] Health Maintenance Due Date Last Done Comments [...] evidence of malignancy. BI-RADS 1 - negative [facility] [address] [address] Procedure Note Glenys Andujar MD - 09/29/2024 [...] evidence of malignancy. BI-RADS 1 - negative [facility] [address] [place] [address] Nona Chaparro MD IMG XR PROCEDURES Final Result from Last 3 Months or Most Recently Relevant to Health Maintenance Care Teams Make Ready Mechanic Relationship Specialty Start Date End Date Nona Chaparro MD PCP - General Internal Medicine 07/01/21
[2025-06-03 16:08] LABS: CT PCR Urine NOT DETECTED (Not Detect.); NG PCR Urine NOT DETECTED (Not Detect.)
[2025-06-11 00:19] LABS: Calprotectin, Fecal 8 mcg/g
== END 2025-06-03 11:04 | disposition home or self-care (01) ==
LOC: HO.LNP 11:03
PROVIDERS: Visit Provider Internal Medicine
DX: Z11.3 Encounter for screening for infections with a predominantly sexual mode of transmission (principal); R19.8 Other specified symptoms and signs involving the digestive system and abdomen
CPT/HCPCS: 82656; 83993; 87338; 87491; 87591

== ENCOUNTER 2025-10-06 11:14 | Outpatient (AMB) | payer OTHER, SELFPAY ==
--- NOTE | 2025-10-06 11:16 | A.OFFPC_ITS ---
Vital Signs 10/06/25 11:21 Height 5 ft 4 in Weight 198 lb BMI 34.0 BP 138/88 Blood Pressure Location Lt brachial Position Sitting Respiration 14 Pulse 69 Pulse Source Pulse Oximeter Temp 97.6 F Temp Source Oral Pulse Oximetry (%) 97 Oxygen Delivery Method Room Air Intake Visit Reasons: rash underleath her breast Intake Note: Rash under both breasts. Global Sourcing Manager Required: No Allergies bacitracin (From Polysporin(bacitracin base)) Allergy (Severe, Verified 10/06/25 11:19) Rash Penicillins Allergy (Severe, Verified 10/06/25 11:19) Rash polymyxin B (From Polysporin(bacitracin base)) Allergy (Severe, Verified 10/06/25 11:19) Rash Tobacco use date assessed: 10/06/25 Last assessed Fall Risk: 10/06/25 Dental Screening Dental Screen Date: 06/01/25 HPI HPI Comments History of Present Illness Details Patient is a 65-year-old female with a past medical history of hypothyroid, COBY, prediabetes, SVT presenting for follow-up Presenting for rash under the breast. She has been applying lamisil without resolution. She also notes a small area of scaly/blistered skin on the right lower thoracic back. Not painful. Tiny additional areas of raised eczematous like lesions. She has a new pink raised dome lesion between the scapula which is concerning for BCC/SCC. She will call her quiller machine fixer to have this checked Hypothyroid: Stable on levothyroxine. COBY: Stable on CPAP therapy Cardiovascular: She has a history of SVT. Was seen in the hospital in 2021 for a prolonged episode. She was given adenosine with relief. She followed up with cardiology since. She believes in was driven by allergy medicine MSK: Saw ortho for [facility] arthritis. Started on turmeric with much improvement. Remote injury with knife puncture while cooking. Has had numbness in the thumb since. EMG normal. xray performed. History of melanoma. New lesion as above. Follows with dermatology Mammo UTD Colonoscopy 2020-[address] Lima. Reports increased bowel issues. Increased frequency and changing consistency. No fatigue, weight loss. Pap 06/2021 ROS see HPI PHYSICAL EXAM: GENERAL: Alert and oriented x 3. NAD EYES: EOMI. Anicteric. HENT: Moist mucous membranes. No scleral icterus. No cervical lymphadenopathy. LUNGS: Clear to auscultation bilaterally. CARDIOVASCULAR: Regular rate and rhythm. No murmur. No JVD. ABDOMEN: Soft, non-tender +bs EXTREMITIES: No edema. Non-tender. SKIN: see HPI NEUROLOGIC: No focal neurological deficits. CN II-XII grossly intact PSYCHIATRIC: Cooperative. Appropriate mood and affect FOR[facility]LY [facility] Medical History History of mammogram Pap smear for cervical cancer screening SVT (supraventricular tachycardia) COBY on CPAP Hypothyroid Nevus Surgical History History of bladder suspension procedure Status post hysteroscopic ablation of endometrium History of colonoscopy Family History Mother Asthma Hypertension High cholesterol Diabetes Father Psychiatric disorder Paternal Grandmother Thyroid disorder Social History Household Members: Spouse and Children Housing: House Alcohol intake: current Alcohol intake frequency: a few times a month Patient Tobacco Use Status: Never used Tobacco e-Cigarette/Vaping Use: Never Used service: No Current occupational status: 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 Cognitive needs: No Hearing needs: No Vision needs: No Questionnaire Thrive Questionnaire Date Thrive assessed: 11/21/24 I am a: Patient What is your living situation today?: I have a steady place to live Within the past 12 months, did the food you bought not last and you didn't have the money to get more?: Never true Within the past 12 months, did you worry whether your food would run out before you got money to buy more?: Never true Do you have trouble paying for medicines?: No Do you have trouble getting transportation to medical appointments?: No Do you have trouble paying your heating and electricity bill?: No Do you have trouble taking care of your child, family member or friend?: No Do you have trouble with day-to-day activities such as bathing, preparing meals, shopping, managing finances, etc.?: No Are you currently unemployed and looking for a job?: No Are you interested in more education?: No Please select the resources that you would like help with: None Currently or been in a relationship where the following occur: No concerns reported THRIVE Score: 0 AUDIT C Alcohol Use Questionnaire (AUDIT-C) 1. How often do you have a drink containing alcohol?: 2-3 times a week 2. How many drinks containing alcohol do you have on a typical day when you are drinking?: 3 or 4 3. How often do you have six or more drinks on one occasion?: Never Total Score: 4 GRAEME-7 AMB Questionnaire GRAEME-7 Date GRAEME - 7 assessed: 05/20/24 Source: Developed by Drs. Lito Bonilla, Susan Montgomery, Oscar Christine and colleagues, with an educational rachel from [employer]. Physical exam (Primary Care) Vital Signs: Last Vital Signs Temp 97.6 F 10/06/25 11:21 Pulse 69 10/06/25 11:21 Resp 14 10/06/25 11:21 BP 138/88 10/06/25 11:21 Pulse Ox 97 10/06/25 11:21 Oxygen Delivery Method Room Air 10/06/25 11:21 BMI result Body Mass Index 34.0 Tobacco/Smoking Status: Tobacco use Status Tobacco use date assessed 10/06/25 10/06/25 11:23 Patient Tobacco Use Status Never used Tobacco 10/06/25 11:17 e-Cigarette/Vaping Use Never Used 10/06/25 11:17 Thrive Assessment: Date of Thrive Assessment Date Thrive assessed 11/21/24 10/06/25 11:17 Currently or been in a relationship where the following occur: No concerns reported Coding Level of Care Code Est Pt Level 4 (35454) Diagnoses Rash R21 Skin lesion L98.9 Assessment & Plan Assessment & Plan (1) Rash: Code(s): R21 - Rash and other nonspecific skin eruption (2) Skin lesion: Code(s): L98.9 - Disorder of the skin and subcutaneous tissue, unspecified Plan Breast rash consistent with tinea cruris-oral terbanife sent. Nystatin powder to prevent Skin lesion between shoulder blades is concerning for malignancy. She will call derm to schedule Medications: New terbinafine HCl 250 mg PO DAILY 10 tabs 3RF nystatin 1 appl topical DAILY 30 grams 3RF
[2025-10-06 11:21] VITALS: BP 138/88; PULSE 69; RESP 14; TEMP 36.4; O2SAT 97; BMI 34.0
== END 2025-10-06 11:41 | disposition home or self-care (01) ==
LOC: HO.HMCFM 11:15
PROVIDERS: PCP Internal Medicine; Visit Provider Internal Medicine
DX: R21 Rash and other nonspecific skin eruption (principal); L98.9 Disorder of the skin and subcutaneous tissue, unspecified